=== PATIENT | female | born 1980 | race Caucasian/White ===

== ENCOUNTER → 2019-12-27 09:20 | Outpatient (BNVA) | payer SELFPAY | PROVIDERS: Family Provider Family Medicine; PCP Family Medicine; Visit Provider Nurse Practitioner Women's Health | DX: N92.0 Excessive and frequent menstruation with regular cycle (principal); N84.1 Polyp of cervix uteri; E66.01 Morbid (severe) obesity due to excess calories; Z68.43 Body mass index [BMI] 50.0-59.9, adult | CPT/HCPCS: 84146; 84443; 84702; 85025 ==

== ENCOUNTER → 2019-12-30 09:41 | Outpatient (BNVA) | payer SELFPAY | PROVIDERS: Family Provider Family Medicine; PCP Family Medicine; Visit Provider Nurse Practitioner Women's Health | DX: N84.1 Polyp of cervix uteri (principal) | CPT/HCPCS: 88305 ==

== ENCOUNTER → 2020-01-08 14:22 | Outpatient (BNVA) | payer SELFPAY | PROVIDERS: Family Provider Family Medicine; PCP Family Medicine; Visit Provider Nurse Practitioner Women's Health | DX: Z12.4 Encounter for screening for malignant neoplasm of cervix (principal); N92.0 Excessive and frequent menstruation with regular cycle; N84.1 Polyp of cervix uteri; B37.3 Candidiasis of vulva and vagina | CPT/HCPCS: 88175 ==

== ENCOUNTER → 2020-01-17 09:01 | Outpatient (BNVA) | payer SELFPAY | PROVIDERS: Family Provider Family Medicine; PCP Family Medicine; Visit Provider Nurse Practitioner Women's Health | DX: N92.0 Excessive and frequent menstruation with regular cycle (principal); N83.201 Unspecified ovarian cyst, right side | CPT/HCPCS: 76830 ==

== ENCOUNTER → 2020-01-21 09:24 | Outpatient (BNVA) | payer SELFPAY | PROVIDERS: Family Provider Family Medicine; PCP Family Medicine; Visit Provider Nurse Practitioner Women's Health | DX: N92.0 Excessive and frequent menstruation with regular cycle (principal) | CPT/HCPCS: 81025 ==

== ENCOUNTER → 2020-01-23 10:24 | Outpatient (BNVA) | payer SELFPAY | PROVIDERS: Family Provider Family Medicine; PCP Family Medicine; Visit Provider Nurse Practitioner Women's Health | DX: N92.0 Excessive and frequent menstruation with regular cycle (principal) | CPT/HCPCS: 88305 ==

== ENCOUNTER 2022-03-23 09:07 | Outpatient (CLI) | payer SELFPAY ==
[2022-03-23 09:36] LABS: Basophils % 0.4 %; Eosinophils # 0.2 10^3/uL (0.0-0.8); Eosinophils % 3.1 %; Hematocrit 42.9 % (37.0-47.0); Hemoglobin 13.5 g/dL (11.5-15.3); Lymphocytes # 1.4 10^3/uL (0.8-4.8); Lymphocytes % 27.2 %; Mean Corpuscular HGB Conc 31.5 g/dL (30.0-36.0); Mean Corpuscular Hemoglobin 25.4 pg (28.0-34.0); Mean Corpuscular Volume 80.8 fl (81-99); Mean Platelet Volume 10.4 fL (7.4-10.4); Monocytes # 0.4 10^3/uL (0.2-0.9); Monocytes % 7.7 %; Nucleated Red Blood Cells % 0 %; Platelet Count 227 10^3/cmm (130-400); Red Blood Count 5.31 10^6/uL (4.1-5.3); Red Cell Distribution Width 13.7 % (12.1-15.1); White Blood Count 5.1 10^3/uL (4.0-10.0)
[2022-03-23 09:46] LABS: Estmated Average Glucose 111; Hemoglobin A1C 5.5 % (4.0-6.0)
[2022-03-23 10:11] LABS: Alanine Aminotransferase 14 U/L (0-33); Albumin Level 4.1 g/dL (3.5-5.2); Alkaline Phosphatase 66 IU/L (35-105); Blood Urea Nitrogen 9 mg/dL (6-20); Calcium 9.5 mg/dL (8.5-10.5); Carbon Dioxide 25 mmol/L (22-29); Chloride 97 mmol/L (98-107); Cholesterol 212 mg/dL (0-200); Free T4 Free Thyroxine 1.07 ng/dL (0.82-1.77); Globulin 4.1 g/dL (1.3-4.6); Glomerular Filtration Rate 92.7 mL/min (90-130); Glucose 117 mg/dL (65-115); HDL Cholesterol 40 mg/dL (60-100); LDL Cholesterol Calculated 127 mg/dL (50-129); LDL HDL Ratio 3.18 RATIO (0.00-3.22); Osmolality Calculated 274 mOsm/kg (285-295); Sodium 132 mmol/L (136-145); Thyroid Stimulating Hormone 2.77 uIU/mL (0.27-4.20); Total Bilirubin 0.2 mg/dL (0.15-1.2); Total Protein 8.2 g/dL (6.6-8.7); Triglycerides 226 mg/dL (0-150)
[2022-03-23 10:14] LABS: Anion Gap 14.4 (5-19); Aspartate Amino Transferase 20 U/L (0-32); Potassium 4.4 mmol/L (3.5-5.1)
== END 2022-03-23 09:08 | disposition home or self-care (01) ==
PROVIDERS: Family Provider Family Medicine; Visit Provider Family Medicine
DX: Z76.89 Persons encountering health services in other specified circumstances (principal); I10 Essential (primary) hypertension
CPT/HCPCS: 36415; 80053; 80061; 83036; 84439; 84443; 85025

== ENCOUNTER → 2023-04-19 08:39 | Outpatient (BNVA) | payer SELFPAY | PROVIDERS: Family Provider Family Medicine; PCP Family Medicine; Visit Provider Family Medicine | DX: I10 Essential (primary) hypertension (principal); E28.2 Polycystic ovarian syndrome | CPT/HCPCS: 80053; 80061; 83036; 84443; 85025 ==

== ENCOUNTER → 2024-04-17 08:53 | Outpatient (BNVA) | payer SELFPAY | PROVIDERS: Family Provider Family Medicine; PCP Family Medicine; Visit Provider Family Medicine | DX: I10 Essential (primary) hypertension (principal); R00.2 Palpitations; E55.9 Vitamin D deficiency, unspecified; Z79.899 Other long term (current) drug therapy | CPT/HCPCS: 80053; 80061; 81003; 82306; 84443; 85025 ==

== ENCOUNTER 2025-06-06 23:15 | Emergency (ER) | payer SELFPAY ==
[2025-06-06 23:30] VITALS: BP 187/100; PULSE 88; RESP 16; TEMP 36.5; O2SAT 97; BMI 47.7
[2025-06-07 00:17] LABS: Hematocrit 41.5 % (36-47); Hemoglobin 13.40 g/dL (11.27-16.99); Mean Corpuscular HGB Conc 32.3 g/dL (30-55); Mean Corpuscular Hemoglobin 25.7 pg (27-33); Mean Corpuscular Volume 79.7 fl (85-98); Nucleated Red Blood Cells % 0 %; Platelet Count 183 10^3/cmm (157-399); Red Blood Count 5.21 10^6/uL (3.85-5.65); White Blood Count 5.18 10^3/uL (3.29-11.43)
[2025-06-07 00:28] LABS: HCG, Serum Qual Negative (Negative)
[2025-06-07 00:36] LABS: Alanine Aminotransferase 21 U/L (0-33); Albumin Level 4.0 g/dL (3.5-5.2); Alkaline Phosphatase 64 U/L (35-105); Anion Gap 16.8 (5-19); Aspartate Amino Transferase 23 U/L (0-32); Blood Urea Nitrogen 13 mg/dL (6-20); Calcium 8.9 mg/dL (8.5-10.5); Carbon Dioxide 22 mmol/L (22-29); Chloride 100 mmol/L (98-107); Creatinine Clr Calc Pharmacy 148.0864; Globulin 3.7 g/dL (1.3-4.6); Glucose 170 mg/dL (65-115); Lipase 48 U/L (13-60); Osmolality Calculated 284 mOsm/kg (285-295); Potassium 3.8 mmol/L (3.5-5.1); Sodium 135 mmol/L (136-145); Total Protein 7.7 g/dL (6.6-8.7)
[2025-06-07 01:18] VITALS: BP 171/111; PULSE 66; O2SAT 96
--- NOTE | 2025-06-07 01:21 | CTR_ITS ---
PROCEDURE INFORMATION: Exam: CT Abdomen And Pelvis With Contrast Exam date and time: 06/07/2025 2:15 AM Age: 45 years old Clinical indication: Nausea and vomiting; Abdominal pain; Epigastric pain with n/v TECHNIQUE: Imaging protocol: Computed tomography of the abdomen and pelvis with contrast. Radiation optimization: All CT scans at this facility use at least one of these dose optimization techniques: automated exposure control; mA and/or kV adjustment per patient size (includes targeted exams where dose is matched to clinical indication); or iterative reconstruction. Contrast material: OMNI 350; Contrast volume: 100 ml; Contrast route: INTRAVENOUS (IV); COMPARISON: US transvaginal [id number] 01/17/2020 9:01 AM RADIATION DOSE METRICS: Total DLP (mGy-cm): 1365.43 FINDINGS: Liver: Unremarkable. Gallbladder and biliary ducts: Cholelithiasis without evidence of acute cholecystitis. Pancreas: Normal. No ductal dilation. Spleen: Unremarkable. Adrenal glands: Unremarkable. Kidneys and ureters: Normal. No hydronephrosis. Stomach and bowel: Unremarkable. No obstruction. No mucosal thickening. Appendix: No evidence of appendicitis. Intraperitoneal space: No free air. No fluid collection. Vasculature: Unremarkable. No abdominal aortic aneurysm. Lymph nodes: No enlarged lymph nodes. Urinary bladder: Unremarkable as visualized. Reproductive: 3.8 x 2.7 cm right ovarian cyst. Bones/joints: No acute fracture. Mild multilevel spondylosis. Soft tissues: Unremarkable. CT/CT abdomen pelvis w con* [id number] IMPRESSION: No acute abdominopelvic abnormality.
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
[2025-06-07 01:46] LABS: Glucose Urine UA Negative (Normal); Nitrate Urine Negative (Negative); Specific Gravity, Urine 1.019 (1.005-1.030)
[2025-06-07 01:51] LABS: Add Urine Microscopic? YES
--- NOTE | 2025-06-07 01:54 | ECG_ITS ---
[facility] Test Date: 2025-06-07 Pat Name: Jane Garcia Department: Room: Gender: Female Valet Parker: : 1980 Requested By: Poncho Coppola Order Number: [id number] Hunt MD: Ashish Dos Santos M.D. Measurements Intervals [place] Rate: 72 P: 35 TN: 166 QRS: 18 QRSD: 101 T: 58 QT: 391 QTc: 431 Interpretive Statements SINUS RHYTHM LOW QRS VOLTAGE IN PRECORDIAL LEADS [QRS DEFLECTION < 1.0 mV IN CHEST LEADS] POSSIBLE ANTERIOR MYOCARDIAL INFARCTION , PROBABLY OLD [30 ms Q WAVE IN V3/V4, OR R < 0.2 mV IN V4] No previous ECG available for comparison Electronically Signed On 06-07-2025 08:41:02 CDT by Ashish Dos Santos M.D. [email or web address]
[2025-06-07 02:02] LABS: Troponin(5th) Baseline < 6 ng/L (0-10)
[2025-06-07] MEDS: ondansetron 2 mg/ML SDV 2 mL 4 MG IVP (02:03)
[2025-06-07 02:04] VITALS: RESP 16
[2025-06-07] MEDS: lidocaine 2% viscous 15 ML, aluminum-mag hydrox-simethicon 30 ML, sucralfate oral liq 1 GM PO (02:04)
[2025-06-07] MEDS: morphine 4 mg/mL SDV 1 mL IVP (02:04)
[2025-06-07] MEDS: iohexol 350 mg/mL 500 mL Btl (per mL) IV (02:16)
[2025-06-07 02:22] LABS: Troponin 5 2HR < 6.0 ng/L (0-10); Troponin 5 2HR Delta 0 ABS# (0-10)
[2025-06-07 03:04] VITALS: BP 154/93; PULSE 67; O2SAT 93
--- NOTE | 2025-06-07 03:24 | ECG_ITS ---
[facility] Test Date: 2025-06-07 Pat Name: Jane Garcia Department: Room: Gender: Female Superintendent Power: : 1980 Requested By: Poncho Coppola Order Number: [id number] Hunt MD: Ashish Dos Santos M.D. Measurements Intervals [place] Rate: 71 P: 26 [place]: 167 QRS: 0 QRSD: 94 T: 24 QT: 382 QTc: 416 Interpretive Statements SINUS RHYTHM POSSIBLE ANTERIOR MYOCARDIAL INFARCTION , PROBABLY OLD [30 ms Q WAVE IN V3/V4, OR R < 0.2 mV IN V4] Compared to ECG 06/07/2025 01:54:55 No significant changes Electronically Signed On 06-07-2025 08:42:34 CDT by Ashish Dos Santos M.D. [email or web address]
[2025-06-07 03:59] VITALS: BP 162/93; PULSE 72; O2SAT 98
[2025-06-07 04:40] VITALS: BP 174/103; PULSE 79; O2SAT 93
== END 2025-06-07 04:42 | disposition home or self-care (01) ==
PROVIDERS: Physician Assistant; Emergency Provider Emergency Medicine; Family Provider Family Medicine; PCP Family Medicine
DX: R10.9 Unspecified abdominal pain (principal)
CPT/HCPCS: 36415; 74177; 80053; 81001; 83690; 84484; 84703; 85025; 93005; 96374; 96375; 99285; J2270; J2405; J9999